=== PATIENT | male | born 1975 | race African-American/Black ===

== ENCOUNTER 2021-04-14 23:44 | Emergency (ER) | payer SELFPAY ==
[~2021-04-14] VITALS: Ht 180.3 cm; Wt 86.4 kg
[2021-04-15 00:54] VITALS: BP 147/98
--- NOTE | 2021-04-15 01:27 | ED.ADGEN ---
Past Medical History Past Surgical History: Other Additional Past Surgical Histo: SPINE SURGERY FROM [facility] Smoking Status: Current Every Day Smoker Alcohol Use: Rarely General Adult EDM: Chief Complaint: SKIN PROBLEM HPI: HPI: Patient is a 45 year old male coming in for skin irritation to his stomach and several spots on his leg. 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 He is wearing a cotton T-shirt and sometimes is unable to clean it and the detergent is still against the skin all day. Patient states he takes baths after work with baby oil. Review of Systems: Review of Systems: All other systems within normal limits except for as noted in the HPI Current Medications: Current Medications Medications (Trade) Dose Ordered Sig/Meli Start Time Stop Time Status Last Admin Dose Admin Neomycin/ Polymyxin/ Bacitracin (Triple Antibiotic Ointment) 1 pkt 1X ONCE 04/15/21 01:30 04/15/21 01:31 Allergies: Allergies: Allergies Coded Allergies Type Severity Reaction Last Updated Verified No Known Drug Allergies 04/15/21 No Physical Exam: PE: Constitutional: Well developed, well nourished, no acute distress, non-toxic appearance. [] HENT: Normocephalic, atraumatic, bilateral external ears normal, nose normal. [] Eyes: PERRLA, conjunctiva normal, no discharge. [] Neck: No rigidity, supple, no stridor. [] Cardiovascular: Regular rate and rhythm, brisk cap refill [] Lungs & Thorax: Non labored symmetric respirations, no tachypnea or respiratory distress [] Abdomen: Soft, nondistended. Skin: Warm, dry, no erythema, no rash. Small area of rash around umbilicus [] Back: Unremarkable Extremities: No deformities, range of motion grossly intact, no lower extremity edema [] Neurologic: Alert and oriented X 3, no focal deficits noted. [] Psychologic: Affect normal, judgement normal, mood normal. [] Current Patient Data: Vital Signs: Vital Signs Date Time Temp Pulse Resp B/P (MAP) Pulse Ox O2 Delivery O2 Flow Rate FiO2 04/15/21 00:54 98.9 92 18 147/98 (116) 100 Room Air 98.9 EKG: EKG: [] Heart Score: C/O Chest Pain: No Risk Factors: Risk Factors: DM, Current or recent (<one month) smoker, HTN, HLP, family history of CAD, obesity. Risk Scores: Score 0 - 3: 2.5% MACE over next 6 weeks - Discharge Home Score 4 - 6: 20.3% MACE over next 6 weeks - Admit for Clinical Observation Score 7 - 10: 72.7% MACE over next 6 weeks - Early Invasive Strategies Radiology/Procedures: Radiology/Procedures: [] Course & Med Decision Making: Course & Med Decision Making Pertinent Labs and Imaging studies reviewed. (See chart for details) [] Dragon Disclaimer: Dragon Disclaimer: This electronic medical record was generated, in whole or in part, using a voice recognition dictation system. Departure Departure Impression: Primary Impression: Exposure to chemical irritant Disposition: 01 HOME / SELF CARE / HOMELESS Condition: STABLE Referrals: NO PCP (PCP) Patient Instructions: MITZY Rodriguez MD Apr 15, 2021 01:27
[2021-04-15] MEDS ORDERED: NEOMY/BACITR/POLYMYXIN OINT PACKET. TP ONE (01:30)
== END 2021-04-15 01:36 | disposition home or self-care (01) ==
LOC: ER 23:44
DX: Z77.098 Contact with and (suspected) exposure to other hazardous, chiefly nonmedicinal, chemicals (principal); F17.200 Nicotine dependence, unspecified, uncomplicated
CPT/HCPCS: 99283

== ENCOUNTER 2021-07-19 05:34 | Emergency (ER) | payer SELFPAY | END 2021-07-19 06:56 | disposition left against medical advice (07) | LOC: ER 05:34 | DX: R19.7 Diarrhea, unspecified (principal); Z53.21 Procedure and treatment not carried out due to patient leaving prior to being seen by health care provider ==

== ENCOUNTER 2021-07-19 07:11 | Emergency (ER) | payer SELFPAY | END 2021-07-19 08:55 | disposition left against medical advice (07) | LOC: ER 07:11 | DX: R19.7 Diarrhea, unspecified (principal); Z53.21 Procedure and treatment not carried out due to patient leaving prior to being seen by health care provider ==